=== PATIENT | female | born 1950 | race African-American/Black ===

== ENCOUNTER 2016-12-09 21:45 | Emergency (ER) | payer OTHER ==
[~2016-12-09] VITALS: Ht 154.9 cm; Wt 75.0 kg
[~2016-12-09 21:45] MED LIST: ACET1TAB27 PO; ASPI-556 PO; ATOR40TA28 PO; BENA10TA3 PO; CLOP75 PO; FURO80 PO; FURO80TA3 PO
[2016-12-10] MEDS ORDERED: HYDROCODONE/ACETAMINOPHEN 5-325 MG TABLET PO ONE (00:15)
[2016-12-10 01:57] VITALS: BP 154/65
== END 2016-12-10 02:10 | disposition home or self-care (01) ==
LOC: EMS 21:46
DX: S60.221A Contusion of right hand, initial encounter (principal); E78.00 Pure hypercholesterolemia, unspecified; I10 Essential (primary) hypertension; F17.210 Nicotine dependence, cigarettes, uncomplicated; Z79.82 Long term (current) use of aspirin; X58.XXXA Exposure to other specified factors, initial encounter; Y93.89 Activity, other specified; Y92.89 Other specified places as the place of occurrence of the external cause; Y99.8 Other external cause status
CPT/HCPCS: 99284

== ENCOUNTER → 2017-06-20 | Outpatient (CLI) | payer OTHER | END | disposition home or self-care (01) | LOC: RADPV 10:06 | PROVIDERS: ATTEND Legal Medicine | DX: M16.11 Unilateral primary osteoarthritis, right hip (principal) | CPT/HCPCS: 73502 ==

== ENCOUNTER 2018-01-10 14:26 | Emergency (ER) | payer MEDICARE, OTHER ==
[~2018-01-10] VITALS: Ht 149.9 cm; Wt 61.4 kg
[2018-01-10] MEDS ORDERED: HYDR-309 PO (14:37)
[2018-01-10] MEDS ORDERED: NAPR250T4 PO (14:37)
[2018-01-10] MEDS ORDERED: KETOROLAC TROMETHAMINE 10 MG TABLET PO ONE (15:15)
[2018-01-10] MEDS ORDERED: METHOCARBAMOL 500 MG TABLET PO ONE (15:30)
[2018-01-10 16:21] VITALS: BP 148/79
== END 2018-01-10 16:25 | disposition home or self-care (01) ==
LOC: EMS 14:27
DX: M54.5 Low back pain (principal); G89.29 Other chronic pain; I10 Essential (primary) hypertension; E78.00 Pure hypercholesterolemia, unspecified; F17.210 Nicotine dependence, cigarettes, uncomplicated
CPT/HCPCS: 99283